=== PATIENT | male | born 1955 | race Hispanic/Latino ===

== ENCOUNTER → 2020-07-04 | Outpatient (RCR) | payer MEDICARE | LOC: PT 06-13 10:18 | PROVIDERS: ATTEND Specialist | DX: M17.0 Bilateral primary osteoarthritis of knee (principal) ==

== ENCOUNTER → 2020-08-03 | Outpatient (RCR) | payer MEDICARE | LOC: PT 07-11 13:18 | PROVIDERS: ATTEND Specialist | DX: M17.0 Bilateral primary osteoarthritis of knee (principal) ==

== ENCOUNTER 2020-08-28 13:00 | Outpatient (RCR) | payer MEDICARE | END 2020-09-03 | LOC: PT 13:00 | PROVIDERS: ATTEND Specialist | DX: M17.0 Bilateral primary osteoarthritis of knee (principal) ==

== ENCOUNTER 2020-09-05 13:13 | Outpatient (RCR) | payer MEDICARE | END 2020-10-03 | LOC: PT 13:13 | PROVIDERS: ATTEND Specialist | DX: M17.0 Bilateral primary osteoarthritis of knee (principal) | CPT/HCPCS: 97139 ==